=== PATIENT | male | born 1935 | race Caucasian/White ===

== ENCOUNTER 2022-03-02 06:00 | Outpatient (RCR) | payer MEDICARE, SELFPAY | END 2022-04-01 23:59 | disposition home or self-care (01) | LOC: MPT 06:00 | PROVIDERS: PCP Nurse Practitioner Family; Visit Provider Nurse Practitioner Family | DX: R53.1 Weakness (principal) | CPT/HCPCS: 97110; 97112; 97116; 97162 ==

== ENCOUNTER 2022-03-27 06:00 | Outpatient (RCR) | payer MEDICARE, SELFPAY | END 2022-04-01 23:59 | disposition home or self-care (01) | LOC: MOT 06:00 | PROVIDERS: PCP Family Medicine; Visit Provider Nurse Practitioner Family | DX: R53.1 Weakness (principal) | CPT/HCPCS: 97140; 97166 ==

== ENCOUNTER → 2022-03-27 15:21 | Outpatient (BNVA) | payer MEDICARE, SELFPAY | PROVIDERS: PCP Family Medicine; Visit Provider Family Medicine | DX: I48.91 Unspecified atrial fibrillation (principal); I10 Essential (primary) hypertension | CPT/HCPCS: 80053; 80061; 85610 ==

== ENCOUNTER 2022-04-02 06:00 | Outpatient (RCR) | payer MEDICARE, SELFPAY | END 2022-04-29 23:59 | disposition home or self-care (01) | LOC: MPT 06:00 | PROVIDERS: PCP Family Medicine; Visit Provider Nurse Practitioner Family | DX: R53.1 Weakness (principal); R00.2 Palpitations | CPT/HCPCS: 93242; 97110; 97112; 97116; 97530; 99204 ==

== ENCOUNTER 2022-04-02 06:00 | Outpatient (RCR) | payer MEDICARE, SELFPAY | END 2022-04-29 23:59 | disposition home or self-care (01) | LOC: MOT 06:00 | PROVIDERS: PCP Family Medicine; Visit Provider Nurse Practitioner Family | DX: R53.1 Weakness (principal) | CPT/HCPCS: 97110; 97112; 97760 ==

== ENCOUNTER 2022-04-23 09:24 | Outpatient (CLI) | payer MEDICARE, SELFPAY ==
[2022-04-23 10:33] LABS: Anion Gap 13.4 (5-19); Blood Urea Nitrogen 30 mg/dL (8-23); Calcium 9.4 mg/dL (8.5-10.5); Carbon Dioxide 28 mmol/L (22-29); Chloride 101 mmol/L (98-107); Glucose 108 mg/dL (65-115); Osmolality Calculated 293 mOsm/kg (285-295); Potassium 4.4 mmol/L (3.5-5.1); Sodium 138 mmol/L (136-145)
[2022-04-23 10:34] LABS: Digoxin 0.6 ng/mL (0.6-1.2)
== END 2022-04-23 09:25 | disposition home or self-care (01) ==
LOC: LAB 09:34
PROVIDERS: PCP Family Medicine; Visit Provider Internal Medicine Cardiovascular Disease
DX: I48.91 Unspecified atrial fibrillation (principal); R00.1 Bradycardia, unspecified; Z79.01 Long term (current) use of anticoagulants
CPT/HCPCS: 80048; 80162; 83735

== ENCOUNTER → 2022-04-25 13:13 | Outpatient (BNVA) | payer MEDICARE, SELFPAY | PROVIDERS: PCP Family Medicine; Visit Provider Family Medicine | DX: I48.91 Unspecified atrial fibrillation (principal) | CPT/HCPCS: 85610 ==

== ENCOUNTER 2022-04-28 13:11 | Outpatient (CLI) | payer MEDICARE, SELFPAY ==
--- NOTE | 2022-04-28 13:00 | USCV_ITS ---
Negrito Beckett Age: 86 Gender: M : 1935 Exam Date: 04/28/2022 13:52 Ordering Phys: Katalina Figueredo MD ([email or web address]) Technologist: [place] [facility] [place]: murmur BP: 140 / 70 HR: 42 Rhythm: Sinus Technical Quality: Adequate MEASUREMENTS (Male / Female) Normal Values 2D ECHO LV Diastolic Diameter PLAX 5.5 cm 4.2 - 5.9 / 3.9 - 5.3 cm LV Systolic Diameter PLAX 3.4 cm IVS Diastolic Thickness 1.1 cm 0.6 - 1.0 / 0.6 - 0.9 cm IVS Systolic Thickness 1.6 cm LVPW Diastolic Thickness 1.0 cm 0.6 - 1.0 / 0.6 - 0.9 cm LVPW Systolic Thickness 1.7 cm LVOT Diameter 2.1 cm LV Ejection Fraction 2D Teich 67.3 % LV Ejection Fraction MOD 2C 68.0 % LV Ejection Fraction 2C AL 66.3 % LA Diameter 5.1 cm Aorta at Sinotubular Diameter 2.9 cm M-MODE Aortic Annulus Diameter 4.0 cm LA Ao Ratio MM 1.3 MV E Point Septal Separation 1.1 cm DOPPLER AV Peak Velocity 117.0 cm/s LVOT Peak Velocity 78.0 cm/s AV Area Cont Eq vti 2.3 cm squared AV Area Cont Eq pk 2.3 cm squared MV Area PHT 6.3 cm squared Mitral E to A Ratio 2.0 MV E' Velocity 52.5 cm/s Mitral E to MV E' Ratio 8.7 Mitral E to LV E' Lateral Ratio 8.4 Mitral E to LV E' Septal Ratio 9.1 TR Peak Velocity 313.0 cm/s TR Peak Gradient 39.2 mmHg TV Peak E Velocity 107.0 cm/s Right Atrial Pressure 3.0 mmHg Pulmonary Artery Systolic Pressu 42.2 mmHg RV Acceleration Time 0.2 s FINDINGS Left Ventricle Normal left ventricular size and systolic function, EF 69 %. No regional wall motion abnormalities. Right Ventricle The right ventricle is normal in size and function. Right Atrium Mildl to moderate increased right atrial size. Left Atrium Mild to moderate left atrial enlargement Mitral Valve Thickened mitral valve. Moderate mitral valve regurgitation. Aortic Valve Thickened aortic valve. Mild aortic valve regurgitation. Tricuspid Valve Mild tricuspid valve regurgitation. Estimated pulmonary artery peak systolic pressure 42 mmHg Pulmonic Valve No gross abnormalities noted Pericardium Normal pericardium without effusion. Aorta Normal ascending aorta dimension. IVC The inferior vena cava appears normal. CONCLUSIONS Normal left ventricular size and systolic function, EF 69 %. No regional wall motion abnormalities. Mild to moderate biatrial enlargement Thickened mitral valve. Moderate mitral valve regurgitation. Thickened aortic valve. Mild aortic valve regurgitation. Mild tricuspid valve regurgitation. Estimated pulmonary artery peak systolic pressure 42 mmHg. There is no pericardial effusion. There are no intracardiac masses. No similar previous studies are available for comparison Dr Bairon Valle MD FACC (Electronically Signed) Final Date: 29 April 2022 08:26 S
== END 2022-04-28 13:12 | disposition home or self-care (01) ==
LOC: RAD 13:13
PROVIDERS: PCP Family Medicine; Visit Provider Internal Medicine Cardiovascular Disease
DX: I48.91 Unspecified atrial fibrillation (principal); R06.02 Shortness of breath; I08.3 Combined rheumatic disorders of mitral, aortic and tricuspid valves
CPT/HCPCS: 93306

== ENCOUNTER 2022-04-30 06:00 | Outpatient (RCR) | payer MEDICARE, SELFPAY | END 2022-05-30 23:59 | disposition home or self-care (01) | LOC: MOT 06:00 | PROVIDERS: PCP Family Medicine; Visit Provider Nurse Practitioner Family | DX: R53.1 Weakness (principal) | CPT/HCPCS: 97110; 97112; 97140 ==

== ENCOUNTER → 2022-05-01 13:44 | Outpatient (BNVA) | payer MEDICARE, SELFPAY | PROVIDERS: PCP Family Medicine; Visit Provider Family Medicine | DX: I48.91 Unspecified atrial fibrillation (principal) | CPT/HCPCS: 85610 ==

== ENCOUNTER 2022-05-13 09:46 | Outpatient (RCR) | payer MEDICARE, SELFPAY | END 2022-05-30 23:59 | disposition home or self-care (01) | LOC: MPT 09:46 | PROVIDERS: PCP Family Medicine; Visit Provider Nurse Practitioner Family | DX: R53.1 Weakness (principal) | CPT/HCPCS: 97110; 97112 ==

== ENCOUNTER 2022-05-31 06:00 | Outpatient (RCR) | payer MEDICARE, SELFPAY | END 2022-06-29 23:59 | disposition home or self-care (01) | LOC: MPT 06:00 | PROVIDERS: PCP Family Medicine; Visit Provider Nurse Practitioner Family | DX: R53.1 Weakness (principal) | CPT/HCPCS: 97110; 97112 ==

== ENCOUNTER 2022-05-31 06:00 | Outpatient (RCR) | payer MEDICARE, SELFPAY | END 2022-06-29 23:59 | disposition home or self-care (01) | LOC: MOT 06:00 | PROVIDERS: PCP Family Medicine; Visit Provider Nurse Practitioner Family | DX: R53.1 Weakness (principal) | CPT/HCPCS: 97110; 97112; 97140 ==

== ENCOUNTER → 2022-06-16 13:52 | Outpatient (BNVA) | payer MEDICARE, SELFPAY | PROVIDERS: PCP Family Medicine; Visit Provider Student in an Organized Health Care Education/Training Program | DX: M20.092 Other deformity of left finger(s) (principal) | CPT/HCPCS: 73130; 99203 ==

== ENCOUNTER 2022-06-30 06:00 | Outpatient (RCR) | payer MEDICARE, SELFPAY | END 2022-07-30 23:59 | disposition home or self-care (01) | LOC: MOT 06:00 | PROVIDERS: PCP Family Medicine; Visit Provider Nurse Practitioner Family | DX: R53.1 Weakness (principal) | CPT/HCPCS: 97110; 97112; 99214 ==

== ENCOUNTER 2022-06-30 06:00 | Outpatient (RCR) | payer MEDICARE, SELFPAY | END 2022-07-30 23:59 | disposition home or self-care (01) | LOC: MPT 06:00 | PROVIDERS: PCP Family Medicine; Visit Provider Nurse Practitioner Family | DX: R53.1 Weakness (principal) | CPT/HCPCS: 97110; 97112 ==

== ENCOUNTER 2022-07-31 06:00 | Outpatient (RCR) | payer MEDICARE, SELFPAY | END 2022-08-29 23:59 | disposition home or self-care (01) | LOC: MPT 06:00 | PROVIDERS: PCP Family Medicine; Visit Provider Nurse Practitioner Family | DX: R53.1 Weakness | CPT/HCPCS: 97110; 97112; 97116 ==

== ENCOUNTER 2022-08-07 16:27 | Outpatient (RCR) | payer MEDICARE, SELFPAY | END 2022-08-29 23:59 | disposition home or self-care (01) | LOC: MOT 16:27 | PROVIDERS: PCP Family Medicine; Visit Provider Nurse Practitioner Family | DX: R53.1 Weakness (principal) | CPT/HCPCS: 97035; 97110; 97112; 97140 ==

== ENCOUNTER 2022-08-30 06:00 | Outpatient (RCR) | payer MEDICARE, SELFPAY | END 2022-09-29 23:59 | disposition home or self-care (01) | LOC: MOT 06:00 | PROVIDERS: PCP Family Medicine; Visit Provider Nurse Practitioner Family | DX: R53.1 Weakness (principal) | CPT/HCPCS: 97110; 97112; 97140 ==

== ENCOUNTER 2022-08-30 06:00 | Outpatient (RCR) | payer MEDICARE, SELFPAY | END 2022-09-29 23:59 | disposition home or self-care (01) | LOC: MPT 06:00 | PROVIDERS: PCP Family Medicine; Visit Provider Nurse Practitioner Family | DX: R53.1 Weakness | CPT/HCPCS: 97110; 97112; 97116 ==

== ENCOUNTER → 2022-09-22 10:14 | Outpatient (BNVA) | payer MEDICARE, SELFPAY | PROVIDERS: PCP Family Medicine; Visit Provider Family Medicine | DX: Z79.01 Long term (current) use of anticoagulants (principal) | CPT/HCPCS: 85610 ==

== ENCOUNTER 2022-09-30 06:00 | Outpatient (RCR) | payer MEDICARE, SELFPAY | END 2022-10-30 23:59 | disposition home or self-care (01) | LOC: MPT 06:00 | PROVIDERS: PCP Family Medicine; Visit Provider Nurse Practitioner Family | DX: R00.2 Palpitations (principal) | CPT/HCPCS: 97110; 97530 ==

== ENCOUNTER 2022-09-30 06:00 | Outpatient (RCR) | payer MEDICARE, SELFPAY | END 2022-10-21 23:59 | disposition home or self-care (01) | LOC: MOT 06:00 | PROVIDERS: PCP Family Medicine; Visit Provider Nurse Practitioner Family | DX: R53.1 Weakness (principal) | CPT/HCPCS: 97110; 97112 ==

== ENCOUNTER → 2022-10-20 15:21 | Outpatient (BNVA) | payer MEDICARE, SELFPAY | PROVIDERS: PCP Family Medicine; Visit Provider Family Medicine | DX: I48.91 Unspecified atrial fibrillation (principal); Z79.01 Long term (current) use of anticoagulants | CPT/HCPCS: 85610 ==

== ENCOUNTER → 2022-10-22 14:18 | Outpatient (BNVA) | payer MEDICARE, SELFPAY | PROVIDERS: PCP Family Medicine; Referring Provider Family Medicine; Visit Provider Surgery | DX: K40.90 Unilateral inguinal hernia, without obstruction or gangrene, not specified as recurrent (principal) | CPT/HCPCS: 99203 ==

== ENCOUNTER 2022-11-13 05:22 | Day surgery (SDC) | payer MEDICARE, SELFPAY ==
[2022-11-12 09:25] VITALS: BMI 25.0
[2022-11-13] VITALS (9 sets, daily range): BP systolic 128–162; BP diastolic 66–96; PULSE 60–100; RESP 16–18; TEMP 36.1–36.8; O2SAT 97–99
[2022-11-13] MEDS: sodium chloride 0.9% 1,000 ML 30 ML IV (06:39)
--- NOTE | 2022-11-13 06:49 | W.PM.OPSUD ---
Surgery/Procedure H&P Update DATE OF PROCEDURE: November 13, 2022 DATE H&P PERFORMED: 10/22/22 H&P UPDATE INFORMATION: I have reviewed H&P completed within last 30 days, I have examined patient prior to procedure and No changes to prior documentation PLANNED PROCEDURE: Operation Date: 11/13/22 07:00 Proposed Procedures p 63077 lap left inguinal hernia repair with mesh K40.90(Left) - Bin Maloney,
[2022-11-13] MEDS: ceFAZolin 2,000 MG in sodium chloride 0.9% (plus) 50 ML 100 MG IV (07:01)
[2022-11-13] MEDS: lidocaine-epi 2% 20 mL INJ INJECTION (07:39)
--- NOTE | 2022-11-13 07:58 | P.OP_ITS ---
Operative Report Date of procedure: November 13, 2022 Pre-op diagnosis: Inguinal hernia Post-op diagnosis: Indirect left inguinal hernia Procedure done: Laparoscopic (TEPP) left inguinal hernia repair with mesh Implants: Left extra-large 3D max Bard mesh Specimens removed/disposition: None Surgeon: Bin Maloney DO Anesthesia: General Estimated blood loss (mL): 5 Complications: None apparent Brief History: This is a very pleasant 87-year-old gentleman who presented to my office with a years long history of left groin bulge. Laparoscopic repair of left inguinal hernia with mesh was indicated. The risk and benefits were explained and documented. Procedure: Patient was wheeled into the operative room and placed on the OR table in a supine position. Abdomen was inspected prepped and draped in usual sterile fashion. Time-out was performed and all present were in agreement. A 15 blade scalpel was used to make 1.2 centimeter incision infraumbilically. Combination of sharp and blunt dissection was performed down to the anterior rectus sheath which was opened sharply. The dissecting balloon was then inserted into the space of Retzius and blown up. We put the camera into the port and identified that we were in the correct space. I then placed 2 5 millimeter trocars suprapubically in the midline. I then used endokitners to bluntly dissect in the space of Retzius out laterally. A large indirect inguinal hernia was id entified on the left. Blunt dissection was performed to dissect down the hernia sac until the vas deferens dove medially. An extra-large left inguinal mesh was then placed into the space of Retzius. The mesh was unrolled and tacked once medially at the pubic bone. The mesh laid out nicely over the spermatic cord. Photos were taken of the mesh laid out and the hernia sac laid underneath the mesh. I watched the hernia sac remained in place as insufflation was removed. Incisions were closed with 4-0 Monocryl in a subcuticular interrupted fashion. Skin glue was applied. Patient tolerated the procedure well.
--- NOTE | 2022-11-13 08:55 | ANES.PREANE2 ---
Pre-Anesthetic Assessment Height/Weight: Height 1.73 m Weight 74.843 kg Temp Pulse Resp BP Pulse Ox O2 Del Method O2 Flow Rate 98.2 F 72 17 152/78 98 Room Air 6 11/13/22 08:38 11/13/22 08:38 11/13/22 08:38 11/13/22 08:38 11/13/22 08:38 11/13/22 08:38 11/13/22 08:18 Operation Date: 11/13/22 07:00 Proposed Procedures p 30509 lap left inguinal hernia repair with mesh K40.90(Left) - Bin Maloney DO Familial anesthetic complications: none Was Beta Kaela taken within 24 hours: Yes Was Clonidine taken within 24 hours: N/A Last intake: Intake Last Liquid Date 11/12/22 Last Liquid Time 19:00 Last Solid Date 11/12/22 Last Solid Time 14:00 Social No alcohol and No tobacco Exam alert, oriented x 3 and clear to auscultation bilaterally Airway Submandibular: within normal limits Cervical ROM: within normal limits Mallampati: Class II Dentition: chipped CV/HEM Atrial Fibrillation and Hypertension GI Gastroesophageal Reflux Disease Musc/skel contracture left arm Neuropsych Anxiety and Depression Anesthetic Plan ASA status: 3 Medications/Allergies Home Medications Medication Instructions Recorded Confirmed Last Taken Type calcium carb-magnesium oxide-vit C 400 tab PO DAILY 02/13/22 11/12/22 11/12/22 History 400 mg calcium-117 mg-167 mg tablet cholecalciferol (vitamin D3) 50 50 mcg PO DAILY 02/13/22 11/12/22 11/12/22 History mcg (2,000 unit) capsule vitamin B complex (B 1 tab PO DAILY 02/13/22 11/12/22 11/12/22 History Complex-Vitamin B12 tablet) ascorbic acid (vitamin C) 500 mg 500 mg PO BID 04/02/22 11/12/22 11/12/22 History capsule omega 6-loa-ash-fish oil 100 1,000 cap PO DAILY 04/02/22 11/12/22 11/12/22 History mg-160 mg-1,000 mg capsule (Fish Oil) tumeric 500 mg PO DAILY 04/02/22 10/22/22 11/12/22 History vitamin E (dl, acetate) 180 mg 180 mg PO DAILY 04/02/22 11/12/22 11/12/22 History (400 unit) capsule digoxin 125 mcg (0.125 mg) tablet 125 mcg PO .every other day #30 04/17/22 11/12/22 11/12/22 Rx tabs metoprolol tartrate 50 mg tablet 50 mg PO BID #180 tabs 04/17/22 11/12/22 11/13/22 Rx acetaminophen 325 mg tablet 325 mg PO QID PRN Pain 06/30/22 11/12/22 Unknown History amlodipine 10 mg tablet 10 mg PO DAILY 90 days #90 tabs 07/30/22 11/12/22 11/13/22 Rx omeprazole 20 mg capsule,delayed 20 mg PO DAILY 90 days #90 caps 07/30/22 11/12/22 11/12/22 Rx release diaper,brief,adult,disposable #90 ea 08/05/22 10/22/22 Unknown Rx (Depend Underwear For Men Large-Extra Large) warfarin 5 mg tablet 5 mg PO DIRECTED #30 tabs 09/28/22 11/12/22 11/06/22 Rx saw palmetto 160 mg capsule 160 mg PO BID 10/08/22 11/12/22 11/12/22 History docusate sodium 100 mg capsule 100 mg PO BID #14 caps 11/13/22 Unknown Rx (Colace) hydrocodone 5 mg-acetaminophen 325 1 tab PO Q6H PRN pain #20 tabs 11/13/22 Unknown Rx mg tablet Allergies Allergy/AdvReac Type Severity Reaction Status Date / Time No Known Allergies Allergy Verified 11/13/22 06:00 Current Medications Generic Name Dose Route Start Last Admin Trade Name Freq PRN Reason Stop Dose Admin Sodium Chloride 1,000 mls @ 30 mls/hr 11/13/22 05:45 11/13/22 06:39 Sodium Chloride 0.9% IV 11/14/22 05:44 30 mls/hr .Q24H JOSE JUAN Administration PFSH Anesthesia Medical History Atrial fibrillation Chronic anticoagulation Hernia Hypertension Incontinence Left-sided weakness Surgical History H/O hernia repair right abdominal History of cholecystectomy History of eye surgery right eye Family History Other Family history unknown Social History Smoking and tobacco status: never smoked Data Anesthesia Cardiac Studies: Echocardiogram 04/28/22
[2022-11-13] MEDS: ondansetron 2 mg/ML SDV 2 mL 4 MG IVP (09:07)
[2022-11-13] MEDS: HYDROcodone-acetaminophen 5-325 mg Tablet 1 TAB PO (09:09)
--- NOTE | 2022-11-13 14:01 | ANE.PACU2 ---
Inpatient post-anesthesia follow up: Airway intact: Yes Vital signs: Temperature 98.1 F Pulse Rate 68 Respiratory Rate 16 Blood Pressure 150/78 Pulse Oximetry 98 Oxygen Delivery Me thod Room Air Oxygen Flow Rate 6 Fraction of Inspir ed Oxygen Hydration adequate: Yes Nausea and vomiting: No Pain level: 2 Mental status: Baseline
== END 2022-11-13 09:50 | disposition home or self-care (01) ==
PROVIDERS: PCP Family Medicine; Visit Provider Surgery
PROC: (CPT 49650; principal; 2022-11-13 07:00)
DX: K40.90 Unilateral inguinal hernia, without obstruction or gangrene, not specified as recurrent (principal); I48.91 Unspecified atrial fibrillation; I10 Essential (primary) hypertension; K21.9 Gastro-esophageal reflux disease without esophagitis
CPT/HCPCS: 49650; 51702; J0690; J1100; J2371; J2405; J2704; J2710; J3010; J3490; J7030

== ENCOUNTER → 2022-11-20 15:18 | Outpatient (BNVA) | payer MEDICARE, SELFPAY | PROVIDERS: PCP Family Medicine; Referring Provider Family Medicine; Visit Provider Family Medicine | DX: I48.91 Unspecified atrial fibrillation (principal); Z79.01 Long term (current) use of anticoagulants | CPT/HCPCS: 85610 ==

== ENCOUNTER → 2022-11-25 09:40 | Outpatient (BNVA) | payer MEDICARE, SELFPAY | PROVIDERS: PCP Family Medicine; Visit Provider Surgery | DX: Z98.890 Other specified postprocedural states (principal); Z87.19 Personal history of other diseases of the digestive system | CPT/HCPCS: 99024 ==

== ENCOUNTER → 2022-12-08 08:34 | Outpatient (BNVA) | payer MEDICARE, SELFPAY | PROVIDERS: PCP Family Medicine; Referring Provider Family Medicine; Visit Provider Family Medicine | DX: I48.91 Unspecified atrial fibrillation (principal) | CPT/HCPCS: 85610 ==

== ENCOUNTER → 2022-12-18 14:39 | Outpatient (BNVA) | payer MEDICARE, SELFPAY | PROVIDERS: PCP Family Medicine; Referring Provider Family Medicine; Visit Provider Family Medicine | DX: Z79.01 Long term (current) use of anticoagulants (principal); I48.91 Unspecified atrial fibrillation | CPT/HCPCS: 85610 ==

== ENCOUNTER → 2023-01-30 09:57 | Outpatient (BNVA) | payer MEDICARE, SELFPAY | PROVIDERS: PCP Family Medicine; Visit Provider Family Medicine | DX: I10 Essential (primary) hypertension (principal); I48.91 Unspecified atrial fibrillation; K21.9 Gastro-esophageal reflux disease without esophagitis; R00.2 Palpitations; Z79.01 Long term (current) use of anticoagulants; Z51.81 Encounter for therapeutic drug level monitoring | CPT/HCPCS: 80053; 80061; 80162; 85025 ==

== ENCOUNTER → 2023-03-17 12:21 | Outpatient (BNVA) | payer MEDICARE, SELFPAY | PROVIDERS: PCP Family Medicine; Referring Provider Family Medicine; Visit Provider Family Medicine | DX: Z79.01 Long term (current) use of anticoagulants (principal) | CPT/HCPCS: 85610 ==

== ENCOUNTER → 2023-03-25 10:31 | Outpatient (BNVA) | payer MEDICARE, SELFPAY | PROVIDERS: PCP Family Medicine; Visit Provider Family Medicine | DX: I48.91 Unspecified atrial fibrillation (principal) | CPT/HCPCS: 85610 ==

== ENCOUNTER 2023-03-28 17:06 | Emergency (ER) | payer MEDICARE, SELFPAY ==
--- NOTE | 2023-03-28 17:14 | CTR_ITS ---
PROCEDURE INFORMATION: Exam: CT Cervical Spine Without Contrast Exam date and time: 03/28/2023 5:23 PM Age: 87 years old Clinical indication: Injury or trauma; Fall; Blunt trauma; Additional info: Fall neck pain TECHNIQUE: Imaging protocol: Computed tomography of the cervical spine without contrast. Radiation optimization: All CT scans at this facility use at least one of these dose optimization techniques: automated exposure control; mA and/or kV adjustment per patient size (includes targeted exams where dose is matched to clinical indication); or iterative reconstruction. COMPARISON: CT head wo con* [id number] 03/28/2023 5:23 PM RADIATION DOSE METRICS: Total DLP (mGy-cm): 645.2 FINDINGS: Bones/joints: No fracture. Extensive multilevel degenerative changes from C3-C7. No severe canal stenosis. Lungs: Lung apices are grossly clear. Soft tissues: No acute findings. CT/CT cervical spin wo con* [id number] IMPRESSION: Degenerative changes without acute findings.
--- NOTE | 2023-03-28 17:14 | CTR_ITS ---
PROCEDURE INFORMATION: Exam: CT Head Without Contrast Exam date and time: 03/28/2023 5:23 PM Age: 87 years old Clinical indication: Injury or trauma; Fall; Blunt trauma (contusions or hematomas); Without loss of consciousness; Additional info: Fall anticoagulated TECHNIQUE: Imaging protocol: Computed tomography of the head without contrast. Radiation optimization: All CT scans at this facility use at least one of these dose optimization techniques: automated exposure control; mA and/or kV adjustment per patient size (includes targeted exams where dose is matched to clinical indication); or iterative reconstruction. COMPARISON: CT cervical spin wo con* [id number] 03/28/2023 5:23 PM RADIATION DOSE METRICS: Total DLP (mGy-cm): 981.4 FINDINGS: Brain: No hemorrhage. Chronic white matter and senescent changes including volume loss somewhat asymmetric on the right. Fatty falx cerebri. Cerebral ventricles: No ventriculomegaly. Paranasal sinuses: Visualized sinuses are grossly clear. Mastoid air cells: No mastoid effusion. Bones/joints: No acute findings. Soft tissues: No acute findings. CT/CT head wo con* [id number] IMPRESSION: No acute intracranial abnormality.
[2023-03-28 17:22] VITALS: BP 160/58; PULSE 82; O2SAT 99
--- NOTE | 2023-03-28 17:46 | ECG_ITS ---
[facility] Test Date: 2023-03-28 Pat Name: Negrito Beckett Department: Room: Gender: Male [place]: : 1935 Requested By: Wilfrido Judge Order Number: [id number] Viera MD: Bairon Valle M.D. Measurements Intervals Lander Rate: 111 P: 0 CT: 0 QRS: -62 QRSD: 120 T: 89 QT: 306 QTc: 417 Interpretive Statements ATRIAL FIBRILLATION WITH RAPID VENTRICULAR RESPONSE LEFT ANTERIOR FASCICULAR BLOCK [QRS AXIS <= -45, QR IN I, RS IN II] SEPTAL MYOCARDIAL INFARCTION , OF INDETERMINATE AGE [40+ ms Q WAVE IN V1/V2] No previous ECG available for comparison Electronically Signed On 03-28-2023 21:58:25 [employer] by Bairon Valle M.D. [email or web address]
[2023-03-28 17:52] VITALS: BP 134/74; PULSE 94; O2SAT 91
--- NOTE | 2023-03-28 17:55 | ED_ITS ---
HPI - Neck Pain/Injury 2 General: Chief Complaint: Neck Pain/Injury Stated Complaint: NECK PAIN S/P FALL Time Seen by Provider: 03/28/23 17:08 History of Present Illness: Presents to the ER post fall off of the toilet. Patient hurt his neck and his head. Patient rates pain 7 out of 10. Patient said this is his second fall in about the last week. Patient did not lose consciousness blackout or have syncope during these falls it was mechanical fall both times. Patient also notes overall generalized weakness and blurry vision. Patient has had no overt sickness such as fevers chills coughs colds nausea vomiting diarrhea, no medication changes, patient does have atrial fibrillation and is on warfarin as his anticoagulant. His INR was checked approximately 2 days ago and was noted to be 2.8 per family. Review of Systems 2 General: Reports: 10 or more systems reviewed and unremarkable except in HPI and below PFSH ED 2 PFSH: Medical History Chronic anticoagulation Hypertension Incontinence Hernia Left-sided weakness Atrial fibrillation Surgical History Hx of inguinal hernia repair 11/13/[address] Maloney History of eye surgery right eye H/O hernia repair right abdominal History of cholecystectomy Family History Other Family history unknown Social History Smoking and tobacco/nicotine status: never used tobacco/nicotine Physical Exam 2 Const: COMMON NORMALS: no acute distress, average body habitus, patient oriented x3, no limitations, healthy appearing, alert and well nourished HENMT: COMMON NORMALS: normocephalic, atraumatic, hearing grossly normal bilaterally, external ears normal, Normal external nose present, moist oral mucous membranes and oropharynx normal HEAD & SCALP: normocephalic and atraumatic NOSE: Normal external nose present EXTERNAL EAR: Yes external ears normal Eye: COMMON NORMALS: Equal, round and reactive pupils present, EOMs intact bilaterally, conjunctivae normal and no scleral icterus CONJUNCTIVA: Yes conjunctivae normal PUPIL: Yes Equal, round and reactive pupils present Neck/C-Spine: COMMON NORMALS: no JVD OTHER: C-collar was removed after CT scan of head and neck come back with results of negative. Chest: COMMONS NORMALS: normal inspection of the chest and normal palpation of entire chest wall Resp: COMMON NORMALS: normal respiratory effort, No retractions, No use of accessory muscles and clear to auscultation bilaterally AUSCULTATION: clear to auscultation bilaterally Cardio: COMMON NORMALS: no JVD, regular rate, S1 normal heart sound present and S2 normal heart sound present; negative for regular rhythm (Irregularly irregular) RATE: regular rate R HYTHM: abnormal rhythm (Irregularly irregular) HEART SOUNDS: S1 normal heart sound present and S2 normal heart sound present GI: COMMON NORMALS: Normal to inspection, nondistended, normoactive bowel sounds present, Soft to palpation, non-tender, No hepatosplenomegaly present and no masses PALPATION: Yes Soft to palpation and Yes No hepatosplenomegaly present Neuro: COMMON NORMALS: patient oriented x3 SENSORIUM/ORIENTATION: Yes alert Course 2 Vital Signs: Vital signs: Vital Signs Pulse Rate 99 03/28/23 19:36 Blood Pressure 133/71 03/28/23 19:36 Pulse Oximetry 93 03/28/23 19:36 Oxygen Delivery Me thod Room Air 03/28/23 17:52 MDM - Neck Pain/Injury Medical Decision Making C-spine CT and head CT were obtained which showed no acute findings, blood work including CBC CMP lactic acid procalcitonin magnesium CRP BNP TSH and urinalysis were obtained. BNP was elevated patient does not show any clinical signs of congestive heart failure at this time. Urinalysis showed possible mild urinary tract infection. Patient be treated for urinary tract infection and should follow-up with his PCP within next 7 days for further treatment as needed. Digoxin still pending. Medical Records I reviewed the patient's medical records. Lab Data I reviewed the patient's lab results. 03/28/23 18:08 03/28/23 18:08 Radiology Impressions Cervical Spine CT 03/28/23 17:14 IMPRESSION: Degenerative changes without acute findings. Head CT 03/28/23 17:14 IMPRESSION: No acute intracranial abnormality. Laboratory Results WBC 7.49 10^3/uL (3.29-11.43) 03/28/23 18:08 RBC 4.27 10^6/uL (3.85-5.65) 03/28/23 18:08 Hgb 13.00 g/dL (11.27-16.99) 03/28/23 18:08 Hct 41.5 % (37-53) 03/28/23 18:08 MCV 97.2 fl (82-101) 03/28/23 18:08 MCH 30.4 pg (27-33) 03/28/23 18:08 MCHC 31.3 g/dL (30-55) 03/28/23 18:08 RDW 15.6 % (12.1-15.1) H 03/28/23 18:08 Plt Count 181 10^3/cmm (157-399) 03/28/23 18:08 MPV 9.2 fL (7.4-10.4) 03/28/23 18:08 Neut % (Auto) 63.9 % 03/28/23 18:08 Lymph % (Auto) 16.4 % 03/28/23 18:08 [place] % (Auto) 15.9 % 03/28/23 18:08 Eos % (Auto) 2.0 % 03/28/23 18:08 Baso % (Auto) 1.3 % 03/28/23 18:08 Neut # (Auto) 4.78 10^3/uL (1.8-7.7) 03/28/23 18:08 Lymph # (Auto) 1.2 10^3/uL (0.8-4.8) 03/28/23 18:08 [place] # (Auto) 1.2 10^3/uL (0.2-0.9) H 03/28/23 18:08 Eos # (Auto) 0.2 10^3/uL (0.0-0.8) 03/28/23 18:08 Baso # (Auto) 0.1 10^3/uL (0.0-0.1) 03/28/23 18:08 Nucleated RBC % (auto) 0 % 03/28/23 18:08 Nucleated RBCs # 0.0 /100WBC 03/28/23 18:08 Sodium 135 mmol/L (136-145) L 03/28/23 18:08 Potassium 4.5 mmol/L (3.5-5.1) 03/28/23 18:08 Chloride 100 mmol/L (98-107) 03/28/23 18:08 Carbon Dioxide 19 mmol/L (22-29) L 03/28/23 18:08 Anion Gap 20.5 (5-19) H 03/28/23 18:08 BUN 27 mg/dL (8-23) H 03/28/23 18:08 Creatinine 0.7 mg/dL (0.7-1.2) 03/28/23 18:08 GFR Calculation Not Reportable 03/28/23 18:08 Glucose 100 mg/dL (65-115) 03/28/23 18:08 Calculated Osmolality 285 mOsm/kg (285-295) 03/28/23 18:08 Lactic Acid 1.4 mmol/L (0.5-2.2) 03/28/23 18:08 Calcium 9.2 mg/dL (8.5-10.5) 03/28/23 18:08 Magnesium 1.8 mg/dL (1.7-2.3) 03/28/23 18:08 Total Bilirubin 0.8 mg/dL (0.15-1.2) 03/28/23 18:08 AST 23 U/L (0-40) 03/28/23 18:08 ALT 14 U/L (0-41) 03/28/23 18:08 Alkaline Phosphatase 93 U/L (40-130) 03/28/23 18:08 C-Reactive Protein 8.5 mg/L (0.0-4.9) H 03/28/23 18:08 NT-Pro-B Natriuret Pep 3709 pg/mL (0-450) H 03/28/23 18:08 Total Protein 7.2 g/dL (6.6-8.7) 03/28/23 18:08 Albumin 3.7 g/dL (3.5-5.2) 03/28/23 18:08 Globulin 3.5 g/dL (1.3-4.6) 03/28/23 18:08 Procalcitonin 0.02 ng/mL (0-0.5) 03/28/23 18:08 TSH 1.03 uIU/mL (0.27-4.20) 03/28/23 18:08 Urine Color Yellow (Yellow) 03/28/23 19:50 Urine Appearance Clear (CLEAR) 03/28/23 19:50 Urine pH 8 (5-7) H 03/28/23 19:50 Ur Specific [place] 1.010 (1.005-1.030) 03/28/23 19:50 Urine Protein Neg (Negative) 03/28/23 19:50 Urine Glucose (UA) Norm (Normal) 03/28/23 19:50 Urine Ketones Negative (Negative) 03/28/23 19:50 Urine Blood Neg (Negative) 03/28/23 19:50 Urine Nitrate Negative (Negative) 03/28/23 19:50 Urine Bilirubin Neg (Negative) 03/28/23 19:50 Prot Sulfosalicylic Acd Negative (Negative) 03/28/23 19:50 Urine Urobilinogen 1 mg/dL (Negative) H 03/28/23 19:50 Ur Leukocyte Esterase Trace (Negative) H 03/28/23 19:50 Urine RBC 0-4 /hpf (0-2) H 03/28/23 19:50 Urine WBC 0-4 /hpf (0-5) H 03/28/23 19:50 Ur Squamous Epith Cells 0-4 /hpf (0-5) H 03/28/23 19:50 Amorphous Sediment Not Reportable 03/28/23 19:50 Urine Bacteria Trace /hpf (NONE) 03/28/23 19:50 Urine Mucus Trace /hpf 03/28/23 19:50 All radiology interpretation(s) finalized by discharge EKG Data EKG 1: I personally reviewed and interpreted this EKG as follows: EKG interpretation date: 03/28/23 EKG interpretation time: 17:52 Prior EKG tracings: not available for review Interpretation: EKG showed ventricular rate 111 bpm, QRS duration 120, QTc of 372, atrial fibrillation with RVR, left anterior fascicular block, Discharge Plan Discharge Patient Disposition: Home Clinical Impression: Atrial fibrillation, Fall, Acute neck pain, Urinary tract infection Condition: Stable Prescriptions: No Action vitamin E (dl, acetate) 180 mg (400 unit) capsule 180 mg PO DAILY tumeric 500 mg PO DAILY acetaminophen 325 mg tablet 325 mg PO QID PRN (Reason: Pain) amlodipine 10 mg tablet 10 mg PO DAILY 90 Days Qty: 90 1RF digoxin 125 mcg (0.125 mg) tablet 125 mcg PO .every other day 90 Days Qty: 45 1RF omeprazole 20 mg capsule,delayed release(DR/EC) 20 mg PO DAILY 90 Days Qty: 90 1RF metoprolol tartrate 50 mg tablet 50 mg PO BID 90 Days Qty: 180 1RF Ca carbonate-mag oxide-vit C 400 mg calcium -117 mg-167 mg tablet 400 tab PO DAILY cholecalciferol (vitamin D3) 50 mcg (2,000 unit) capsule 50 mcg PO DAILY vitamin B complex [B Complex-Vitamin B12] Tablet 1 tab PO DAILY ascorbic acid (vitamin C) 500 mg capsule 500 mg PO BID Fish Oil 100-160-1,000 mg capsule 1,000 cap PO DAILY saw palmetto 160 mg capsule 160 mg PO BID Rx Instructions: give with meal/snack warfarin 2.5 mg tablet 2.5 mg PO DAILY Qty: 30 2RF Rx Instructions: TAKE ONE TABLET M,W,F (DME) Depend Underwear For Men L-XL Misc See Rx Instructions .Route Qty: 90 12RF Rx Instructions: As directed, 3 DAILY, SIZE LARGE warfarin 5 mg tablet See Rx Instructions .ROUTE .COMPLEX Qty: 30 2RF Hold Instructions: Resume on 11/16/22. Protocol: Dose Management Condition: Thursday Dose/Route: 5 mg Instruction: 1 x 5 mg tablet Condition: Thursday Dose/Route: 2.5 mg Instruction: 0.5 x 5 mg tablets Condition: Thursday Dose/Route: 5 mg Instruction: 1 x 5 mg tablet Condition: Thursday Dose/Route: 2.5 mg Instruction: 0.5 x 5 mg tablets Condition: Dose/Route: 5 mg Instruction: 1 x 5 mg tablet Condition: Thursday Dose/Route: 2.5 mg Instruction: 0.5 x 5 mg tablets Condition: Thursday Dose/Route: 5 mg Instruction: 1 x 5 mg tablet Protocol Text: Adjustment Start Date: Thursday03/25/23 INR Value: 33.90 SECONDS INR Date: 03/25/23 Recheck Date: 04/24/23 Dose Instruction: TAKE 1 TABLET BY MOUTH DIRECTED BY PROVIDER Rx Instructions: TAKE 1 TABLET BY MOUTH DIRECTED BY PROVIDER Colace 100 mg capsule 100 mg PO BID Qty: 14 0RF Discharge Orders: Discharge ED (Routine); Ordered 03/28/23 Ordered By: Wilfrido Judge Referrals: Yola Sloan MD [Primary Care Provider] - 1 week Patient Instructions: Urinary Tract Infection in Men (ED), Opioid Safety, Pain Management Activity Restrictions/Additional Instructions: Your evaluation in the ER showed you may have a slight urinary tract infection. Please take all your antibiotics as prescribed. Please follow-up with your family practice physician for further evaluation testing. Coding Level of Care Code ED [employer] for Carolyn Suggs
[2023-03-28 18:22] VITALS: BP 165/126; PULSE 83; O2SAT 94
[2023-03-28 18:32] LABS: Basophils # 0.1 10^3/uL (0.0-0.1); Basophils % 1.3 %; Eosinophils # 0.2 10^3/uL (0.0-0.8); Hematocrit 41.5 % (37-53); Lymphocytes # 1.2 10^3/uL (0.8-4.8); Lymphocytes % 16.4 %; Mean Corpuscular HGB Conc 31.3 g/dL (30-55); Mean Corpuscular Hemoglobin 30.4 pg (27-33); Mean Corpuscular Volume 97.2 fl (82-101); Mean Platelet Volume 9.2 fL (7.4-10.4); Monocytes # 1.2 10^3/uL (0.2-0.9); Monocytes % 15.9 %; Neutrophils # 4.78 10^3/uL (1.8-7.7); Neutrophils % 63.9 %; Nucleated Red Blood Cells % 0 %; Platelet Count 181 10^3/cmm (157-399); Red Blood Count 4.27 10^6/uL (3.85-5.65); Red Cell Distribution Width 15.6 % (12.1-15.1); White Blood Count 7.49 10^3/uL (3.29-11.43)
--- NOTE | 2023-03-28 18:49 | PC.NURSE ---
Assumed care from Sandra GRUBER at this time.
[2023-03-28 18:53] LABS: Lactic Sepsis W/Reflex 1.4 mmol/L (0.5-2.2)
[2023-03-28 19:03] LABS: NT Pro B Type Natriuretic Pept 3709 pg/mL (0-450); Procalcitonin 0.02 ng/mL (0-0.5); Thyroid Stimulating Hormone 1.03 uIU/mL (0.27-4.20)
[2023-03-28 19:17] LABS: Alanine Aminotransferase 14 U/L (0-41); Albumin Level 3.7 g/dL (3.5-5.2); Alkaline Phosphatase 93 U/L (40-130); Blood Urea Nitrogen 27 mg/dL (8-23); C Reactive Protein 8.5 mg/L (0.0-4.9); Calcium 9.2 mg/dL (8.5-10.5); Carbon Dioxide 19 mmol/L (22-29); Chloride 100 mmol/L (98-107); Globulin 3.5 g/dL (1.3-4.6); Glucose 100 mg/dL (65-115); Magnesium 1.8 mg/dL (1.7-2.3); Osmolality Calculated 285 mOsm/kg (285-295); Sodium 135 mmol/L (136-145); Total Bilirubin 0.8 mg/dL (0.15-1.2); Total Protein 7.2 g/dL (6.6-8.7)
[2023-03-28 19:20] LABS: Anion Gap 20.5 (5-19); Aspartate Amino Transferase 23 U/L (0-40); Potassium 4.5 mmol/L (3.5-5.1)
[2023-03-28 19:36] VITALS: BP 133/71; PULSE 99; O2SAT 93
[2023-03-28 20:01] LABS: Add Urine Microscopic? YES; Blood Urine Neg (Negative); Glucose Urine UA Norm (Normal); Ketones Urine Negative (Negative); Nitrate Urine Negative (Negative); Protein Urine Neg (Negative); Urine Appearance Clear (CLEAR); Urine Color Yellow (Yellow); pH Urine 8 (5-7)
[2023-03-28 20:02] LABS: Bacteria Urine TRACE /hpf; Bilirubin Urine Neg (Negative); Leukocyte Esterase Urine Trace (Negative); Mucus Urine TRACE /hpf; RBC Urine 0-4 /hpf (0-2); Squamous Epithelial Cell Urine 0-4 /hpf (0-5); Sulfosalicylic Acid Urine Negative (Negative); Urobilinogen Urine 1 mg/dL (Negative); WBC Urine 0-4 /hpf (0-5)
[2023-03-28 22:17] VITALS: BP 133/73; O2SAT 94
[2023-03-28] MEDS: ciprofloxacin 500 mg Tablet PO (22:19)
[2023-03-28 22:55] LABS: Digoxin 0.3 ng/mL (0.6-1.2)
== END 2023-03-28 23:30 | disposition home or self-care (01) ==
PROVIDERS: Emergency Provider Emergency Medicine; PCP Family Medicine
DX: M54.2 Cervicalgia (principal); I48.91 Unspecified atrial fibrillation; N39.0 Urinary tract infection, site not specified; Z79.01 Long term (current) use of anticoagulants; I10 Essential (primary) hypertension
CPT/HCPCS: 36415; 70450; 72125; 80053; 80162; 81001; 83605; 83735; 83880; 84145; 84443; 85025; 86140; 93005; 99285

== ENCOUNTER → 2023-04-02 14:01 | Outpatient (BNVA) | payer MEDICARE, SELFPAY | PROVIDERS: PCP Family Medicine; Visit Provider Family Medicine | DX: I48.91 Unspecified atrial fibrillation (principal); N39.0 Urinary tract infection, site not specified; Z09 Encounter for follow-up examination after completed treatment for conditions other than malignant neoplasm; Z74.09 Other reduced mobility; Z78.9 Other specified health status; Z79.01 Long term (current) use of anticoagulants | CPT/HCPCS: 85610 ==

== ENCOUNTER → 2023-04-04 11:16 | Outpatient (BNVA) | payer MEDICARE, SELFPAY | PROVIDERS: PCP Family Medicine; Referring Provider Family Medicine; Visit Provider Family Medicine | DX: I48.91 Unspecified atrial fibrillation (principal) | CPT/HCPCS: 85610 ==

== ENCOUNTER → 2023-04-07 15:40 | Outpatient (BNVA) | payer MEDICARE, SELFPAY | PROVIDERS: PCP Family Medicine; Referring Provider Family Medicine; Visit Provider Family Medicine | DX: I48.91 Unspecified atrial fibrillation (principal); Z79.01 Long term (current) use of anticoagulants | CPT/HCPCS: 85610 ==

== ENCOUNTER → 2023-04-10 11:47 | Outpatient (BNVA) | payer MEDICARE, SELFPAY | PROVIDERS: PCP Family Medicine; Referring Provider Family Medicine; Visit Provider Family Medicine | DX: I48.91 Unspecified atrial fibrillation (principal) | CPT/HCPCS: 85610 ==

== ENCOUNTER → 2023-05-28 10:58 | Outpatient (BNVA) | payer MEDICARE, SELFPAY | PROVIDERS: PCP Family Medicine; Visit Provider Family Medicine | DX: I48.91 Unspecified atrial fibrillation | CPT/HCPCS: 85610 ==

== ENCOUNTER 2023-06-03 06:00 | Outpatient (RCR) | payer MEDICARE, SELFPAY | END 2023-06-30 23:59 | disposition home or self-care (01) | LOC: MPT 06:00 | PROVIDERS: PCP Family Medicine; Visit Provider Family Medicine | DX: G81.94 Hemiplegia, unspecified affecting left nondominant side (principal) | CPT/HCPCS: 97110; 97162 ==

== ENCOUNTER → 2023-06-18 13:39 | Outpatient (BNVA) | payer MEDICARE, SELFPAY | PROVIDERS: PCP Family Medicine; Visit Provider Emergency Medicine | DX: R00.1 Bradycardia, unspecified; M54.9 Dorsalgia, unspecified; I10 Essential (primary) hypertension; I48.91 Unspecified atrial fibrillation; L03.90 Cellulitis, unspecified; R00.2 Palpitations | CPT/HCPCS: 80053; 80162; 93005 ==

== ENCOUNTER → 2023-06-19 10:00 | Outpatient (BNVA) | payer MEDICARE, SELFPAY | PROVIDERS: PCP Family Medicine; Referring Provider Emergency Medicine; Visit Provider Emergency Medicine | DX: M54.6 Pain in thoracic spine (principal); W19.XXXA Unspecified fall, initial encounter; M47.894 Other spondylosis, thoracic region | CPT/HCPCS: 72070 ==

== ENCOUNTER 2023-07-01 06:00 | Outpatient (RCR) | payer MEDICARE, SELFPAY | END 2023-07-31 23:59 | disposition home or self-care (01) | LOC: MPT 06:00 | PROVIDERS: PCP Family Medicine; Visit Provider Family Medicine | DX: G81.94 Hemiplegia, unspecified affecting left nondominant side (principal) | CPT/HCPCS: 97110; 97112 ==

== ENCOUNTER → 2023-07-01 14:27 | Outpatient (BNVA) | payer MEDICARE, SELFPAY | PROVIDERS: PCP Family Medicine; Visit Provider Family Medicine | DX: I48.91 Unspecified atrial fibrillation (principal); I10 Essential (primary) hypertension; L03.90 Cellulitis, unspecified; R29.6 Repeated falls; Z74.09 Other reduced mobility; Z78.9 Other specified health status; M54.9 Dorsalgia, unspecified; R00.1 Bradycardia, unspecified; Z79.01 Long term (current) use of anticoagulants; L03.116 Cellulitis of left lower limb; L97.321 Non-pressure chronic ulcer of left ankle limited to breakdown of skin; R53.82 Chronic fatigue, unspecified | CPT/HCPCS: 85610 ==

== ENCOUNTER → 2023-07-02 09:35 | Outpatient (BNVA) | payer MEDICARE, SELFPAY | PROVIDERS: PCP Family Medicine; Referring Provider Emergency Medicine; Visit Provider Nurse Practitioner Family | DX: I48.91 Unspecified atrial fibrillation (principal); I10 Essential (primary) hypertension; I44.4 Left anterior fascicular block; R94.31 Abnormal electrocardiogram [ECG] [EKG] | CPT/HCPCS: 93005; 99214 ==

== ENCOUNTER → 2023-07-08 14:37 | Outpatient (BNVA) | payer MEDICARE, SELFPAY | PROVIDERS: PCP Family Medicine; Visit Provider Family Medicine | DX: I48.91 Unspecified atrial fibrillation (principal); Z79.01 Long term (current) use of anticoagulants; R79.1 Abnormal coagulation profile | CPT/HCPCS: 85610 ==

== ENCOUNTER → 2023-07-15 15:01 | Outpatient (BNVA) | payer MEDICARE, SELFPAY | PROVIDERS: PCP Family Medicine; Visit Provider Family Medicine | DX: I48.91 Unspecified atrial fibrillation (principal); R79.1 Abnormal coagulation profile; L97.321 Non-pressure chronic ulcer of left ankle limited to breakdown of skin; R29.6 Repeated falls; Z79.01 Long term (current) use of anticoagulants | CPT/HCPCS: 85610 ==

== ENCOUNTER → 2023-07-29 13:52 | Outpatient (BNVA) | payer MEDICARE, SELFPAY | PROVIDERS: PCP Family Medicine; Visit Provider Family Medicine | DX: I48.91 Unspecified atrial fibrillation (principal) | CPT/HCPCS: 85610 ==

== ENCOUNTER → 2023-07-31 09:52 | Outpatient (BNVA) | payer MEDICARE, SELFPAY | PROVIDERS: PCP Family Medicine; Referring Provider Family Medicine; Visit Provider Family Medicine | DX: I48.91 Unspecified atrial fibrillation (principal); Z79.01 Long term (current) use of anticoagulants | CPT/HCPCS: 85610 ==

== ENCOUNTER 2023-08-01 06:00 | Outpatient (RCR) | payer MEDICARE, SELFPAY | END 2023-08-30 23:59 | disposition home or self-care (01) | LOC: MPT 06:00 | PROVIDERS: PCP Family Medicine; Visit Provider Family Medicine | DX: G81.94 Hemiplegia, unspecified affecting left nondominant side (principal) | CPT/HCPCS: 97110; 97112 ==

== ENCOUNTER → 2023-08-03 09:28 | Outpatient (BNVA) | payer MEDICARE, SELFPAY | PROVIDERS: PCP Family Medicine; Visit Provider Family Medicine | DX: I48.91 Unspecified atrial fibrillation (principal); Z79.01 Long term (current) use of anticoagulants | CPT/HCPCS: 85610 ==

== ENCOUNTER → 2023-08-12 14:45 | Outpatient (BNVA) | payer MEDICARE, SELFPAY | PROVIDERS: PCP Family Medicine; Visit Provider Family Medicine | DX: Z79.01 Long term (current) use of anticoagulants (principal); I48.91 Unspecified atrial fibrillation | CPT/HCPCS: 85610 ==

== ENCOUNTER → 2023-08-19 14:56 | Outpatient (BNVA) | payer MEDICARE, SELFPAY | PROVIDERS: PCP Family Medicine; Referring Provider Family Medicine; Visit Provider Family Medicine | DX: I48.91 Unspecified atrial fibrillation (principal) | CPT/HCPCS: 85610 ==

== ENCOUNTER → 2023-08-26 14:49 | Outpatient (BNVA) | payer MEDICARE, SELFPAY | PROVIDERS: PCP Family Medicine; Referring Provider Family Medicine; Visit Provider Family Medicine | DX: I48.91 Unspecified atrial fibrillation (principal); Z79.01 Long term (current) use of anticoagulants | CPT/HCPCS: 85610 ==

== ENCOUNTER → 2023-09-09 14:49 | Outpatient (BNVA) | payer MEDICARE, SELFPAY | PROVIDERS: PCP Family Medicine; Visit Provider Family Medicine | DX: I48.91 Unspecified atrial fibrillation (principal); R79.1 Abnormal coagulation profile; Z79.01 Long term (current) use of anticoagulants; I10 Essential (primary) hypertension; K21.9 Gastro-esophageal reflux disease without esophagitis | CPT/HCPCS: 85610 ==

== ENCOUNTER 2023-09-11 11:30 | Outpatient (RCR) | payer MEDICARE, SELFPAY | END 2023-09-30 23:59 | disposition home or self-care (01) | LOC: MPT 11:30 | PROVIDERS: PCP Family Medicine; Visit Provider Family Medicine | DX: R53.1 Weakness (principal) | CPT/HCPCS: 97110; 97112 ==

== ENCOUNTER → 2023-09-23 13:30 | Outpatient (BNVA) | payer MEDICARE, SELFPAY | PROVIDERS: PCP Family Medicine; Referring Provider Family Medicine; Visit Provider Family Medicine | DX: I48.91 Unspecified atrial fibrillation (principal); Z79.01 Long term (current) use of anticoagulants | CPT/HCPCS: 85610 ==

== ENCOUNTER 2023-10-01 06:00 | Outpatient (RCR) | payer MEDICARE, SELFPAY | END 2023-10-31 23:59 | disposition home or self-care (01) | LOC: MPT 06:00 | PROVIDERS: PCP Family Medicine; Visit Provider Family Medicine | DX: G81.94 Hemiplegia, unspecified affecting left nondominant side (principal) | CPT/HCPCS: 97110; 97112; 97116 ==

== ENCOUNTER → 2023-10-15 12:55 | Outpatient (BNVA) | payer MEDICARE, SELFPAY | PROVIDERS: PCP Family Medicine; Visit Provider Family Medicine | DX: I10 Essential (primary) hypertension (principal); I48.91 Unspecified atrial fibrillation | CPT/HCPCS: 80053; 80162; 85025; 85610; 93005 ==

== ENCOUNTER 2023-11-01 06:00 | Outpatient (RCR) | payer MEDICARE, SELFPAY | END 2023-11-30 23:59 | disposition home or self-care (01) | LOC: MPT 06:00 | PROVIDERS: PCP Family Medicine; Visit Provider Family Medicine | DX: R53.1 Weakness (principal) | CPT/HCPCS: 97110; 97112; 97530 ==

== ENCOUNTER → 2023-12-02 09:40 | Outpatient (BNVA) | payer MEDICARE, SELFPAY | PROVIDERS: PCP Family Medicine; Visit Provider Internal Medicine | DX: I48.91 Unspecified atrial fibrillation (principal); Z79.01 Long term (current) use of anticoagulants; R00.1 Bradycardia, unspecified; I10 Essential (primary) hypertension; R53.1 Weakness; N40.1 Benign prostatic hyperplasia with lower urinary tract symptoms; N39.43 Post-void dribbling; R00.2 Palpitations | CPT/HCPCS: 99214 ==

== ENCOUNTER → 2024-01-06 13:23 | Outpatient (BNVA) | payer MEDICARE, SELFPAY | PROVIDERS: PCP Family Medicine; Visit Provider Family Medicine | DX: I48.91 Unspecified atrial fibrillation (principal) | CPT/HCPCS: 85610 ==

== ENCOUNTER → 2024-01-13 12:37 | Outpatient (BNVA) | payer MEDICARE, SELFPAY | PROVIDERS: PCP Family Medicine; Visit Provider Family Medicine | DX: I48.91 Unspecified atrial fibrillation (principal); Z79.01 Long term (current) use of anticoagulants | CPT/HCPCS: 85610 ==

== ENCOUNTER → 2024-02-16 12:25 | Outpatient (BNVA) | payer MEDICARE, SELFPAY | PROVIDERS: PCP Family Medicine; Visit Provider Internal Medicine | DX: I48.91 Unspecified atrial fibrillation (principal); I10 Essential (primary) hypertension; R00.1 Bradycardia, unspecified; Z79.01 Long term (current) use of anticoagulants | CPT/HCPCS: 99214 ==

== ENCOUNTER → 2024-02-17 09:31 | Outpatient (BNVA) | payer MEDICARE, SELFPAY | PROVIDERS: PCP Family Medicine; Visit Provider Internal Medicine | DX: I10 Essential (primary) hypertension (principal); I48.91 Unspecified atrial fibrillation; R00.1 Bradycardia, unspecified; R53.1 Weakness; N40.1 Benign prostatic hyperplasia with lower urinary tract symptoms; N39.43 Post-void dribbling | CPT/HCPCS: 85610 ==

== ENCOUNTER → 2024-02-22 13:05 | Outpatient (BNVA) | payer MEDICARE, SELFPAY | PROVIDERS: PCP Family Medicine; Visit Provider Internal Medicine | DX: I48.91 Unspecified atrial fibrillation (principal) | CPT/HCPCS: 85610 ==

== ENCOUNTER → 2024-04-26 12:56 | Outpatient (BNVA) | payer MEDICARE, SELFPAY | PROVIDERS: PCP Family Medicine; Referring Provider Registered Nurse; Visit Provider Dermatology | DX: L82.1 Other seborrheic keratosis (principal); L81.4 Other melanin hyperpigmentation; D48.5 Neoplasm of uncertain behavior of skin; L57.0 Actinic keratosis | CPT/HCPCS: 11102; 17000; 99203 ==

== ENCOUNTER → 2024-08-04 12:52 | Outpatient (BNVA) | payer MEDICARE, SELFPAY | PROVIDERS: PCP Family Medicine; Visit Provider Podiatrist Foot & Ankle Surgery | DX: I73.9 Peripheral vascular disease, unspecified (principal); L60.3 Nail dystrophy | CPT/HCPCS: 11721; 99203 ==

== ENCOUNTER → 2024-09-01 13:20 | Outpatient (BNVA) | payer MEDICARE, SELFPAY | PROVIDERS: PCP Family Medicine; Visit Provider Nurse Practitioner Family | DX: L82.1 Other seborrheic keratosis (principal); L57.8 Other skin changes due to chronic exposure to nonionizing radiation; L81.4 Other melanin hyperpigmentation; X32.XXXA Exposure to sunlight, initial encounter; Z08 Encounter for follow-up examination after completed treatment for malignant neoplasm; Z85.828 Personal history of other malignant neoplasm of skin; Z09 Encounter for follow-up examination after completed treatment for conditions other than malignant neoplasm; Z87.2 Personal history of diseases of the skin and subcutaneous tissue | CPT/HCPCS: 99213 ==